=== PATIENT | male | born 2000 | race African-American/Black ===

== ENCOUNTER 2019-02-06 11:34 | Emergency (ER) | payer OTHER ==
--- NOTE | 2019-02-06 12:09 | ER Document Report ---
HPI - HPI Time Seen by Provider: 02/06/19 12:09 Pain Level: 0 Notes: 18-year-old male presents the ED for evaluation of STDs, states his girlfriend was recently diagnosed with trichomonas, advised him that he needs to be treated. Patient reports he has had unprotected sexual intercourse with his girlfriend. Denies any dysuria, burning with urination, frequency, penile discharge, scrotal pain or penile pain. Denies any recent fevers or chills, denies any bowel bladder dysfunction, denies any abdominal pain, nausea vomiting or diarrhea. Past Medical History - General Information source: Patient - Social History Smoking Status: Unknown if Ever Smoked Family History: Reviewed & Not Pertinent Vertical Provider Document - CONSTITUTIONAL Agree With Documented VS: Yes Exam Limitations: No Limitations General Appearance: WD/WN Notes: PHYSICAL EXAMINATION: GENERAL: Well-appearing, well-nourished and in no acute distress. HEAD: Atraumatic, normocephalic. EYES: Pupils equal round and reactive to light, extraocular movements intact, sclera anicteric, conjunctiva are normal. ENT: Nares patent, oropharynx clear without exudates. Moist mucous membranes. NECK: Normal range of motion, supple without lymphadenopathy LUNGS: Breath sounds clear to auscultation bilaterally and equal. No wheezes rales or rhonchi. HEART: Regular rate and rhythm without murmurs ABDOMEN: Soft, nontender, nondistended abdomen. No guarding, no rebound. No masses appreciated. : Musculoskeletal: Normal range of motion, no pitting or edema. No cyanosis. NEUROLOGICAL: Cranial nerves grossly intact. Normal speech, normal gait. Normal sensory, motor exams PSYCH: Normal mood, normal affect. SKIN: Warm, Dry, normal turgor, no rashes or lesions noted. - INFECTION CONTROL TRAVEL OUTSIDE OF THE [place] IN LAST 30 DAYS: No Course - Re-evaluation Re-evalutation: 02/06/19 12:29 Afebrile vital stable no distress, nursing notes reviewed. Wet mount was ordered to obtain to see if trichomonas was detected as well as Chlamydia gonorrhea. Discussed practicing safe sex by using a barrier method or every time when sexually active or abstinence. Advised to follow-up with the health department for further STD testing such as HIV, syphilis, hepatitis C etc. trichomonas is not seen and wet prep however patient was exposed as his graft did test positive for trichomonas, prescription for Flagyl 2 g p.o. once given to patient. After performing a Medical Screening Examination, I estimate there is LOW risk for EXPANDING OR RUPTURED ABDOMINAL AORTIC ANEURYSM, CAUDA EQUINA SYNDROME, EPIDURAL MASS ABSCESS OR LESION(S), OSTEOMYELITIS,PERSONAL HISTORY OF CANCER, IMMUNOSUPPERSSSION, HISTORY OF IV DRUG USE, FRACTURE, CORD COMPERSSION, CANCER, RETROPERITONEAL BLEED, SPINAL EPIDURAL HEMATOMA, or HERNIATED DISK CAUSING SEVERE SPINAL STENOSIS, thus I consider the discharge disposition reasonable. I have reevaluated this patient multiple times and no significant life threatening changes are noted. The patient and I have discussed the diagnosis and risks, and we agree with discharging home and close follow-up. We also discussed returning to the Emergency Department immediately if new or worsening symptoms occur with the understanding that symptoms and presentations can change. We have discussed the symptoms which are most concerning (e.g., saddle anesthesia, urinary or bowel incontinence or retention, changing or worsening pain) that necessitate immediate return. - Vital Signs Vital signs: Temp Pulse Resp BP Pulse Ox 98.2 F 82 15 126/59 H 98 02/06/19 11:42 02/06/19 11:42 02/06/19 11:42 02/06/19 11:42 02/06/19 11:42 Discharge - Discharge Clinical Impression: STD exposure Condition: Stable Disposition: HOME, SELF-CARE Additional Instructions: Your evaluated today for exposure to chlamydia, gonorrhea, trichomonas. I advise you to go to the health department for further STD testing for HIV, hepatitis C, syphilis which is not done here in the ED. We will call you with the Chlamydia gonorrhea results and if your positive we will ask you to come back for treatment or follow-up with the health department. If you are positive, do not have sex for 10 days, use barrier method such as condoms when you are sexually active so you do not contract or spread STDs to other individuals. Return immediately for any new or worsening symptoms. Follow up with primary care provider, call tomorrow to make followup appointment. Prescriptions: Metronidazole [Flagyl 500 mg Tablet] 2,000 mg PO ONCE PRN #4 tablet PRN Reason: Referrals: SYED PATEL MD [COMMUNITY BASED STAFF] - Follow up as needed MIKE ARCHER MD [ACTIVE STAFF] - Follow up as needed
[2019-02-06 12:46] LABS: APPEARANCE,URINE CLEAR; BILIRUBIN,URINE NEGATIVE (NEGATIVE); CALCIUM OXALATE CRYSTALS,URINE RARE /HPF; COLOR,URINE YELLOW; GLUCOSE, URINE NEGATIVE (NEGATIVE); KETONES,URINE NEGATIVE (NEGATIVE); LEUKOCYTE ESTERASE,URINE NEGATIVE (NEGATIVE); NITRITE,URINE NEGATIVE (NEGATIVE); PROTEIN,URINE 30 mg/dL (NEGATIVE); URINE SPECIFIC GRAVITY 1.025
[2019-02-06 12:56] LABS: RBCS (WET MOUNT) NO RBCS SEEN; T.VAGINALIS (WET MOUNT) NO TRICHOMONAS SEEN; WBCS (WET MOUNT) NO WBCS SEEN; YEAST (WET MOUNT) BUDDING YEAST SEEN
[2019-02-06 14:03] VITALS: BP 134/75
[2019-02-06 14:15] LABS: CHLAM PCR NOT DETECTED (NOT DETECT)
== END 2019-02-06 14:09 | disposition home or self-care (01) ==
LOC: ER 11:34
DX: Z20.2 Contact with and (suspected) exposure to infections with a predominantly sexual mode of transmission (principal)
CPT/HCPCS: 81001; 87210; 87491; 87591